=== PATIENT | male | born 1975 | race Two or more races ===

== ENCOUNTER 2025-06-23 08:47 | Outpatient (CLI) | payer OTHER | END 2025-06-23 08:51 | disposition home or self-care (01) | LOC: SONOGRAMA 08:47 | PROVIDERS: ATTEND Urology | DX: N40.0 Benign prostatic hyperplasia without lower urinary tract symptoms (principal); N39.43 Post-void dribbling; Z12.5 Encounter for screening for malignant neoplasm of prostate; N20.1 Calculus of ureter ==